=== PATIENT | female | born 1990 | race Caucasian/White ===

== ENCOUNTER 2020-05-16 18:44 | Observation (INO) | payer OTHER ==
[~2020-05-16] VITALS: Ht 162.6 cm; Wt 51.0 kg
[~2020-05-16 18:44] MED LIST: OXYcodone/APAP 5/325MG TABLET PO ONE
[2020-05-16 20:42] LABS: BASOPHILS % (AUTO) 1 % (0-1); EOSINOPHILS % (AUTO) 1 % (1-7); LYMPHOCYTES % (AUTO) 25 % (22-44); MEAN CORPUSCULAR HEMOGLOBIN 32.4 pg (27.0-34.8); MEAN CORPUSCULAR HGB CONC 33.9 g/dL (32.4-35.8); MEAN PLATELET VOLUME 7.2 fL (7.4-10.4); MONOCYTES % (AUTO) 6 % (2-9); NEUTROPHILS % (AUTO) 68 % (42-75); PLATELET COUNT 215 x10^3/uL (130-400); RED BLOOD COUNT 3.73 x10^6/uL (3.82-5.3); RED CELL DISTRIBUTION WIDTH 13.6 % (9.6-15.2)
[2020-05-16 20:50] LABS: INTERNATIONAL NORMALIZED RATIO 0.95 (0.93-1.1); PROTHROMBIN TIME 10.2 Seconds (9.6-11.5)
[2020-05-16 20:59] LABS: MD NO
[2020-05-16 21:47] LABS: MICROSCOPIC AUTO
[2020-05-16] MEDS ORDERED: OXYcodone/APAP 5/325MG TABLET ONE (23:38)
== END 2020-05-16 23:45 | disposition home or self-care (01) ==
LOC: LDOP 18:44 → LDIP 21:55
PROVIDERS: ADMIT Obstetrics & Gynecology; ATTEND Obstetrics & Gynecology
DX: O26.612 Liver and biliary tract disorders in pregnancy, second trimester (principal); K82.8 Other specified diseases of gallbladder; Z3A.23 23 weeks gestation of pregnancy
CPT/HCPCS: 36415; 74181; 81001; 85025; 85384; 85610; 85730; 87086; 99211; G0378; G0463